=== PATIENT | female | born 1995 | race Caucasian/White ===

== ENCOUNTER 2016-07-03 16:03 | Emergency (ER) | payer OTHER ==
[2016-07-03 16:58] LABS: BASO % 0.1 % (0.1-1.2); EOS % 0.1 % (0.7-5.8); GRAN # 8.6 10_X3_uL (1.6-6.1); GRAN % 87.4 % (34.0-71.1); HEMATOCRIT 40.5 % (34-45); LYMPH # 0.8 10_X3_uL (1.2-3.7); LYMPH % 8.6 % (19.3-51.7); MEAN CORPUSCULAR HEMOGLOBIN 28.4 pg (27.0-33.0); MEAN CORPUSCULAR HGB CONC 34.6 g/dL (32.0-36.0); MEAN CORPUSCULAR VOLUME 82.2 fL (79-95); MEAN PLATELET VOLUME 10.1 fl (7.5-11.5); MONO # 0.4 10_X3_uL (0.2-0.9); MONO % 3.8 % (4.7-12.5); PLATELET COUNT 238 x10_3/uL (182-369); RED BLOOD COUNT 4.93 x10_6/uL (3.9-5.2); RED CELL DISTRIBUTION WIDTH 13.9 % (11.7-14.4); WHITE BLOOD COUNT 9.8 x10_3/uL (4.0-10.0)
[2016-07-03 17:11] LABS: ALBUMIN 4.2 gm/dL (3.4-5.0); ALKALINE PHOSPHATASE 72 U/L (50-136); ALT/SGPT 31 U/L (3.5-33.9); AMYLASE 79 U/L (15.62-74.58); AST/SGOT 24 U/L (7.04-26.96); BILIRUBIN,TOTAL 1.29 mg/dL (0.0-1.0); BLOOD UREA NITROGEN 13 mg/dL (7-18); CARBON DIOXIDE 22 mmol/L (21-32); CREATININE 0.7 mg/dL (0.6-1.3); GLUCOSE,RANDOM 96 mg/dL (70-99); LIPASE 38 U/L (6.75-60.75); SODIUM 140 mmol/L (136-145); TOTAL PROTEIN 7.7 gm/dL (6.4-8.2)
[2016-07-03 17:18] LABS: URINE BILIRUBIN 1+ (NEGATIVE); URINE BLOOD 2+ (NEGATIVE); URINE GLUCOSE (UA) NORMAL (NORMAL); URINE KETONE TRACE (NEGATIVE); URINE LEUKOCYTE ESTERASE TRACE (NEGATIVE); URINE NITRATE NEGATIVE (NEGATIVE); URINE PROTEIN 1+ (NEGATIVE); UROBILINOGEN NORMAL mg/dL (<1.0)
[2016-07-03 17:29] LABS: URINE BACTERIA TRACE (NONE SEEN); URINE MUCUS TRACE; URINE RBC 0-5 /[HPF] (0-2); URINE SQUAMOUS EPITHELIAL CELL 0-10 /[HPF] (NONE SEEN); URINE WBC 0-5 /[HPF] (0-5)
== END 2016-07-03 19:44 | disposition home or self-care (01) ==
LOC: ER 16:03
PROVIDERS: General Practice
DX: K80.50 Calculus of bile duct without cholangitis or cholecystitis without obstruction (principal); R11.2 Nausea with vomiting, unspecified; R19.7 Diarrhea, unspecified; R10.11 Right upper quadrant pain; R10.32 Left lower quadrant pain; Z88.2 Allergy status to sulfonamides; Z88.1 Allergy status to other antibiotic agents
CPT/HCPCS: 36415; 74150; 80053; 81001; 81025; 82150; 83690; 85025; 87400; 96361; 96374; 99070; 99284-25